=== PATIENT | female | born 1970 | race Caucasian/White ===

== ENCOUNTER → 2020-09-18 | Outpatient (CLI) | payer OTHER ==
[~2020-09-18] MED LIST: PROTONIX 40 MG40 M1 PO; ZOFRAN ODT 4 MG4 MG PO
== END ==
LOC: KOH-I 10:16
DX: R10.9 Unspecified abdominal pain (principal); R06.02 Shortness of breath; J98.11 Atelectasis
CPT/HCPCS: 71046; 74018

== ENCOUNTER 2020-09-25 13:17 | Emergency (ER) | payer OTHER ==
[2020-09-25 14:16] LABS: HEMOGLOBIN 15.2 gm/dl (12.3-15.3); RED BLOOD COUNT 4.89 M/UL (4.00-5.10); WHITE BLOOD COUNT 8.2 K/UL (4.5-11.0)
[2020-09-25 14:43] LABS: BUN/CREATININE RATIO 13 (0-10)
[2020-09-25] MEDS ORDERED: ZOFRAN ODT 4 MG4 MG PO (15:35)
[2020-09-25] MEDS ORDERED: PROTONIX 40 MG40 M1 PO (15:35)
== END 2020-09-25 16:00 | disposition home or self-care (01) ==
LOC: ER1 13:17
PROVIDERS: Emergency Medicine
DX: K21.9 Gastro-esophageal reflux disease without esophagitis (principal); F17.200 Nicotine dependence, unspecified, uncomplicated; Z90.710 Acquired absence of both cervix and uterus; Z90.49 Acquired absence of other specified parts of digestive tract; Z79.899 Other long term (current) drug therapy
CPT/HCPCS: 71046; 80053; 81001; 82550; 82553; 83690; 83874; 84484; 85025; 93005; 99284

== ENCOUNTER → 2021-09-26 | Outpatient (CLI) | payer OTHER | LOC: EXRD 09-16 13:30 | DX: N18.30 Chronic kidney disease, stage 3 unspecified (principal) | CPT/HCPCS: 76775 ==